=== PATIENT | female | born 1945 | race Caucasian/White ===

== ENCOUNTER → 2016-03-22 17:17 | Outpatient (CLI) | payer MEDICARE, BC ==
[2013-03-03 12:32] VITALS: BMI 25.0
[~2016-03-22 17:17] MED LIST: BENADRYL25 MG PO; FOSAMAX PO; MAXZIDE-25 MG T1 TAB PO; PRAVACHOL20 MG PO; SOMA350 MG PO
== END | disposition home or self-care (01) ==
LOC: D.MAMMO 09:00
DX: Z12.31 Encounter for screening mammogram for malignant neoplasm of breast (principal)

== ENCOUNTER → 2016-06-05 08:26 | Outpatient (CLI) | payer MEDICARE, BC ==
[2013-03-03 12:32] VITALS: BMI 25.0
== END | disposition home or self-care (01) ==
LOC: D.MRI 08:26
DX: M47.896 Other spondylosis, lumbar region (principal)

== ENCOUNTER → 2017-07-11 19:49 | Outpatient (CLI) | payer MEDICARE, BC ==
[2013-03-03 12:32] VITALS: BMI 25.0
== END | disposition home or self-care (01) ==
LOC: D.MAMMO 14:30
DX: Z12.31 Encounter for screening mammogram for malignant neoplasm of breast (principal)

== ENCOUNTER → 2017-08-15 16:38 | Outpatient (CLI) | payer MEDICARE, BC ==
[2013-03-03 12:32] VITALS: BMI 25.0
== END | disposition home or self-care (01) ==
LOC: D.MAMMO 08-06 11:30 → D.US 08-06 13:30 → D.MAMMO 08-07 13:30
DX: R92.8 Other abnormal and inconclusive findings on diagnostic imaging of breast (principal)

== ENCOUNTER 2018-08-20 05:00 | Day surgery (SDC) | payer MEDICARE, BC ==
[2018-08-19 14:43] LABS: HEMATOCRIT 40.7 % (36.0-48.0); HEMOGLOBIN 14.3 g/dL (12-16); MCH 31.6 pg (26.0-34.0); MCHC 35.1 g/dL (31.0-37.0); MEAN PLATELET VOLUME 8.9 fL (7.4-10.4); RBC 4.52 10x6/uL (4.00-5.40); RDW 12.5 % (11.5-14.5); WBC 7.3 10x3/uL (4.8-10.8)
[~2018-08-20] VITALS: Ht 165.1 cm; Wt 59.9 kg
[~2018-08-20 05:00] MED LIST changes: +KLONOPIN0.5 MG PO; +MAGNESIUM OXID250 MG PO; +PERCOCET 5-3251 TAB PO; +POTASSIUM CHLORIDE 10 MEQ PO; +VITAMIN D31000 UNI2 PO
[2018-08-20 06:11] VITALS: BP 135/65; Ht 165.1 cm; Wt 59.9 kg
--- NOTE | 2018-08-20 10:05 | NUR ---
1000 FL DIET SERVED
--- NOTE | 2018-08-27 07:45 | OP ---
PATIENT NAME: PADMINI GARCIA MEDICAL RECORD: [id number] :43 LOCATION:D.OPS ADMISSION DATE: SURGEON: ZAYRA FAITH DPM DATE OF OPERATION: 08/20/2018 PREOPERATIVE DIAGNOSES: 1. Hallux abductovalgus, right foot. 2. Tailor's bunion, right foot. 3. Plantar plate rupture, right second metatarsophalangeal joint. 4. Hammertoe, right second digit. POSTOPERATIVE DIAGNOSES: 1. Hallux abductovalgus, right foot. 2. Tailor's bunion, right foot. 3. Plantar plate rupture, right second metatarsophalangeal joint. 4. Hammertoe, right second digit. PROCEDURES: 1. Saurav bunionectomy, right foot. 2. Tailor's bunionectomy, right foot. 3. Rad osteotomy, right second metatarsal. 4. Plantar plate repair, right second MPJ. 5. PIPJ fusion, right second digit. ANESTHESIA: General with local infiltrate utilizing 20 cc of lidocaine and Marcaine plain around the first, second and fifth rays. HEMOSTASIS: Right thigh tourniquet at 350 mmHg. PREOPERATIVE DETAILS: The patient was taken to the OR and placed on the operating table in a supine position followed by induction of general anesthesia and infiltration of local anesthetic. The right extremity was then prepped and draped in the usual aseptic technique followed by exsanguination and inflation of tourniquet. PROCEDURE #1: Saurav bunionectomy, right foot. A 15 blade was used to create a 3 to 4 cm linear incision over the dorsal aspect of the first metatarsal extending to the base of proximal phalanx of the hallux. The incision was deepened down through subcutaneous tissue to the first MPJ where an inverted L capsulotomy was performed. The medial capsular flap was reflected and the head of the first metatarsal was delivered. A sagittal saw was used to resect the medial eminence. Attention was then directed to the first interspace where a lateral release was performed. Attention was then redirected to the medial aspect of the head of first metatarsal where a sagittal saw was used to create a V osteotomy through and through. The capital fragment was translocated laterally and fixated with 0.062 inch K-wire. The medial redundant shelf was resected with a sagittal saw and the pin was cut. Excellent alignment was noted. The wound was flushed. The capsule was repaired with 2-0 Vicryl, the subcutaneous tissue with 4-0 Rapide and the skin was closed with 4-0 Rapide in a subcuticular technique followed by Dermabond. PROCEDURE #2: Tailor's bunionectomy, right foot. A 15 blade was used to create a 2 cm linear incision over the dorsal aspect of the head of the fifth metatarsal of the right foot. The incision was deepened down through subcutaneous tissue to the fifth MPJ. A linear capsulotomy was performed and OPERATIVE REPORT [id number] PADMINI GARCIA the head of the fifth metatarsal was delivered. A sagittal saw was used to resect the lateral third of the fifth metatarsal. The wound was flushed. All rough areas were smoothed with a bone rasp. The capsule was then repaired with 4-0 Rapide. The skin was then repaired with 4-0 Rapide in a subcuticular technique followed by Dermabond. PROCEDURE #3: Rad osteotomy, right second metatarsal. A 15-blade was used to create a curvilinear incision extending from the distal aspect of the second metatarsal upon top of the second digit at the PIPJ. The incision was deepened down through subcutaneous tissue to the extensor longus tendon, which was transected in a Z fashion. Once the extensor longus tendon was freed from the dorsal aspect of the joint, a linear capsulotomy was performed in the second MPJ exposing the second metatarsal head. A McGlamry scoop elevator was then used to free the plantar structures. A sagittal saw was then used to create a Rad osteotomy from dorsal distal to plantar proximal. The distal fragment was pushed proximally and temporarily fixated with a K-wire. A second K-wire was then drilled in the proximal phalanx of the second digit. A wire retractor was then placed over the wires and the joint was distracted. There was noted to be some thinning of the plantar plate centrally. A 15-blade was used to complete the tear at the base of the proximal phalanx of the second digit. Following this maneuver, a scorpion passer was used to pass FiberWire through the plantar plate. Two small drill holes were then made in the base of proximal phalanx of the second digit and utilizing wire passers the FiberWire was brought up through the 2 holes. The Rad osteotomy that was temporarily fixated with a K-wire; K-wires were removed. The capital fragment of the second metatarsal was then put back in proper alignment with the second metatarsal shaft and 2 popoff screws were used to fixate the Rad osteotomy. The plantar plate, which was procedure number 4, was continued with tying surgeon's knots with the FiberWire securing the plantar plate in a much tighter position. PROCEDURE #5: PIPJ fusion, right second digit. The incision as described in #3 and #4 was utilized exposing the head of the proximal phalanx and base of middle phalanx. A sagittal saw was used to resect both. Predrilling was made and then a tubular graft was placed in the proximal phalanx and the middle phalanx allowing excellent compression and alignment of the PIPJ. The wound was flushed. The second MPJ capsule was repaired with 2-0 Vicryl, the extensor longus tendon was repaired with 4-0 Rapide, the subcutaneous tissue was repaired with 4-0 Rapide and the skin was closed in a subcuticular technique utilizing 4-0 Rapide followed by Dermabond. Adaptic, 4 x 4 and Conform were used to dress all wounds followed by application of a modified Hill compression dressing. Tourniquet was deflated. POSTOPERATIVE DETAILS: The patient tolerated the procedure well and left the OR with vital signs stable and vascular status at preoperative levels. The patient was transported to recovery per anesthesia in stable condition. 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
== END 2018-08-20 10:50 | disposition home or self-care (01) ==
LOC: D.OPS 05:00 → D.PAN 07:00 → D.OPS 07:00
PROVIDERS: Anesthesiology; ATTEND Podiatrist
DX: M20.11 Hallux valgus (acquired), right foot (principal); M21.621 Bunionette of right foot; S93.144A Subluxation of metatarsophalangeal joint of right lesser toe(s), initial encounter; M20.41 Other hammer toe(s) (acquired), right foot; Z01.812 Encounter for preprocedural laboratory examination

== ENCOUNTER 2018-10-31 09:00 | Outpatient (CLI) | payer MEDICARE, BC ==
[2018-08-20 06:11] VITALS: BMI 22.0
== END 2018-10-31 10:00 | disposition home or self-care (01) ==
LOC: D.MAMMO 09:00
PROVIDERS: ATTEND Family Medicine
DX: Z12.31 Encounter for screening mammogram for malignant neoplasm of breast (principal)

== ENCOUNTER 2020-08-19 14:30 | Outpatient (CLI) | payer MEDICARE, BC ==
[2018-08-20 06:11] VITALS: BMI 22.0
== END 2020-08-19 23:59 | disposition home or self-care (01) ==
LOC: D.MAMMO 14:30
PROVIDERS: ATTEND Family Medicine
DX: Z12.31 Encounter for screening mammogram for malignant neoplasm of breast (principal)